=== PATIENT | female | born 1990 | race Hispanic/Latino ===

== ENCOUNTER → 2019-01-08 | Outpatient (CLI) | payer MEDICAID | END | disposition home or self-care (01) | LOC: LAB 11:35 | PROVIDERS: ATTEND Obstetrics & Gynecology Maternal & Fetal Medicine | DX: O35.1XX0 Maternal care for (suspected) chromosomal abnormality in fetus, not applicable or unspecified (principal); O26.20 Pregnancy care for patient with recurrent pregnancy loss, unspecified trimester; M32.9 Systemic lupus erythematosus, unspecified; Z3A.00 Weeks of gestation of pregnancy not specified | CPT/HCPCS: 36415; 85732; 86038; 86147; 86215; 86235; 88264 ==